=== PATIENT | female | born 1960 ===

== ENCOUNTER 2024-11-15 14:06 | Outpatient (AMB) | payer SELFPAY ==
--- OUTSIDE RECORDS SUMMARY | 2023-10-30 04:30 | XMS_ITS ---
Author Organization [facility] Address [address] [facility] [place] [address] Care Team Providers Care Clerk Cashier Name Role Phone Herminio HOWELL, Sage Primary Care Provider Unavail Ze Chinchilla Unavailable [phone] Problems No Known Problems Encounters Encounter Location Date Provider Diagnosis [facility] [address] [place] [address] 10/30/2023 Ze Ahuja Plan Of Treatment No Information Progress Notes * Miracle SHANKSDOB: (64 yo F)Acc No.[id number]:10/30/2023 Progress Notes Patient: Elmer LAROSE Miracle Palm Provider: Theresa Ahuja DPM :1960 A ge:63 Y S ex:Female Date:10/30/2023 [address] [place] Pcp:Sage Durham MD Subjective: * Chief Complaints: [...] Ahuja DPM Date: 0 10/30/2023 Generated for Printi ng/Faxing/eTransmitting on: 11/15/2024 04:27 PM EDT
--- OUTSIDE RECORDS SUMMARY | 2024-11-15 16:27 | XMS_ITS | Patient Health Record ---
[facility] [place] Address [address] [place] [address] Care Team Providers Care Billposter Name Role Phone Sage Durham MD Primary Care Provider Unavail Ze Chinchilla Unavailable [phone] Allergies Allergen (clinical drug ingredient) Drug/Non Drug Allergy documented on EMR Reaction Allergy Type Onset Date Status sulfa Unknown Drug Allergy Active Reason For Referral No Information Medications Medication SIG (Take, Route, Frequency, Duration) Notes Start Date End Date Status Custom Orthotics as directed A ctive Estradiol 0.075 MG/24HR 1 patch to skin Transdermal Two times a Week Active Levothyroxine Sodium 75 MCG 1 tablet Ora lly Once a day Active Ashely Active Work Note . . . Pt needs to wear sneakers from Nov.08 - Mar.10 due to chronic foot issues; Duration: . 11/03/2013 Active Custom Orthotics as directed 09/27/2013 Active Problems No Known Problems Plan Of Treatment No Information Insurance Providers Payer Name Payer Address Payer Phone Subscriber Number Group Number Insured Name Patient Relationship to Insured Coverage Start Date Coverage End Date [facility] [address] [place] [address] [id number] Swapnil Monterroso Spouse - patient is the spouse of the insured Medical (General) History Medical History History ICD Code Chicken pox chronic sinusitis Thyroid disorder Joint implants/screws
--- OUTSIDE RECORDS SUMMARY | 2024-11-15 16:27 | XMS_ITS | Encounter Summary ---
Author Organization [facility] Address [address] [facility] [address] [place] [address] Phone Care Team Providers Care Family Independence Case Manager Name Role Phone Allyson Lawson MD Unavailable [phone] Patria Huerta MD Primary Care Provider [phone] Patria Huerta MD Unavailable [phone] Encounter Details Date Type Department Care Team (Latest Contact Info) Description 04/11/2023 Transcribe Orders Virtual Department [address] [place] [address] Patria Huerta MD [address] [place] [address], [address] [place], [place] [id number] [email or web address] Breast screening (Primary Dx) Social History Tobacco Use Types Packs/Day Years Used Date Smoking Tobacco: Former Cigarettes 0.5 20 1 977 - 1996 Smokeless Tobacco: Never Alcohol Use Standard Drinks/Week Comments Yes 2 (1 standard drink = 0.6 oz pur e alcohol) on weekends couple drinks Child or Family Care Answer Date Record ed Do you have problems with on e of the following making it difficult for you to work, study, or receive health care? No 06/27/2021 Education Answer Date Recorded Are you interested in help w ith more adult education (for example, completing high school, GED, job training, learning the Korean language, technical skills, or developing parenting skills)? No 06/27/2021 Food Answer Date Recorded Within the past 6 months we worried whether our food would run out before we got money to buy more. Never True 06/27/2021 Within the past 6 months the food we bought just didn't last and we didn't have enough money to get more. Never True Residential Stability Answer Date Recor ded What is your housing situation today? I have joy barrow 06/27/2021 How many times have you move d in the past 12 months? Zero (I did not move) 06/27/2021 Paying for Meds Answer Date Recorded Do you have trouble paying for medicines? No 06/27/2021 Paying Utility Bills Answer Date Record ed Do you have trouble paying your heating or elect ricity bill? No 06/27/2021 Transportation Answer Date Recorded Has the lack of transportati on kept you from medical appointments or from getting medications? No 06/27/2021 Unemployment Answer Date Recorded Are you currently unemployed or working on a part-time or temporary basis, and looking for work? No 06/27/2021 Digital Access Answer Date Recorded No 08/05/2022 No 08/05/2022 Reliable internet access at home? Not on file 08/05/2022 Device with a working camera? Not on file Comments No Sex and Gender Information Value Date Recorded Sex Assigned at Female 10/31/2021 11:24 AM EDT Legal Sex Female 9:48 PM EDT Gender Identity Female 04/06/2017 1:36 PM EST Sexual Orientation Straight 04/06/2017 1: 36 PM EST documented as of this encounter Plan of Treatment Not on file documented as of this encounter Results * BI MAMMOGRAM SCREENING WITH TOMOSYNTHESIS WITH CAD (BILATERAL) (11/13/2023 10:29 AM EDT) Anatomical Region Laterality Modality Breast Left, Breast Right, Breast Bilateral Bila teral Mammography 11/14/2023 8:39 AM EDT Impressions 11/14/2023 8:42 AM EDT No mammographic evidence of malignancy in either breast. Annual screening mammography is recommended. BI-RADS 1 NEGATIVE The patient will be notified of the results and recommendations. Narrative 11/14/2023 8:42 AM EDT BI MAMMOGRAM SCREENING WITH TOMOSYNTHESIS WITH CAD (BILATERAL) Additional patient information: Screening. COMPARISON: Comparison is made with relevant prior imaging. Breast composition: There are scattered areas of fibroglandular density. FINDINGS: There has been no change in the mammographic findings since previous examination. No abnormal masses, suspicious calcifications, or other significant findings are identified mammographically in either breast. Procedure Note Patience Sweeney MD, PhD - 11/14/2023 BI MAMMOGRAM SCREENING WITH TOMOSYNTHESIS WITH CAD (BILATERAL) Additional patient information: Screening. COMPARISON: Comparison is made with relevant prior imaging. Breast composition: There are scattered areas of fibroglandular density. FINDINGS: There has been no change in the mammographic findings since previousexamination. No abnormal masses, suspicious calcifications, or other significantfindings are identified mammographically in either breast. IMPRESSION: No mammographic evidence of malignancy in either breast. Annual screening mammography is recommended. BI-RADS 1 NEGATIVE The patient will be notified of the results and recommendations. us Patria Huerta MD IMG MG EXAMS Final Result documented in this encounter Visit Diagnoses Diagnosis Breast screening- Primary Breast screening, unspecified Breast screening Breast screening, unspecified documented in this encounter Additional Health Concerns Infection Onset Date Last Indicated Resolved Time CoV-Risk 04/19/2024 04/19/2024 04/30/2024 1:23 AM EST Influenza A 04/19/2024 04/19/2024 04/26/2024 1:23 AM EST Assessment Noted Time PHQ-2 Depression Total Score: 0 06/28/19 8:43 AM EDT documented as of this encounter Care Teams Family Independence Case Manager Relationship Specialty Start Date End Date Patria Huerta MD [address] [place] [address], [facility] [address] [place] [address] [email or web address] PCP - General Family Medicine 06/28/21 Allyson Lawson MD [address] [place] [address] Historical LMR Provider 12/29/16 Patria Huerta MD [address] [place] [address] 7 [place] [address] [email or web address] Insurance Assigned Provider 06/14/23 documented as of this encounter Additional Source Comments The information contained in this document represents components of the legal health record. It is not the complete legal health record.[facility]
--- OUTSIDE RECORDS SUMMARY | 2024-11-15 16:27 | XMS_ITS | Encounter Summary ---
Author Organization [facility] Address [address] [place] [address] Phone Care Team Providers Care Binding Bench Worker Name Role Phone Allyson Lawson MD Unavailable [phone] Patria Huerta MD Primary Care Provider Patria Huerta MD Unavailable [phone] Encounter Details Date Type Department Care Team (Late st Contact Info) Description 04/11/2023 Procedure Pass [address] [place] [address] Social History Tobacco Use Types Packs/Day Years Used Date Smoking Tobacco: Former Cigarettes 0.5 20 0 03/10/1976 - 1996 Smokeless Tobacco: Never Alcohol Use [...] high school, GED, job training, learning the Puerto Rican language, technical skills, or developing parenting skills)? No 06/27/2021 Food Answer Date Recorded Within the past 6 months we worried whether our food would run out before we got money to buy more. Never True 06/27/2021 Within the past 6 months the food we bought just didn't last and we didn't have enough money to get more. Never True 04/20/202 2 Residential Stability Answer Date Recor ded What [...] on file documented as of this encounter Visit Diagnoses Not on filedocumented in this encounter Additional Health Concerns Infection Onset Date Last Indicated Resolved Time CoV-Risk 04/19/2024 04/19/2024 04/30/2024 1:23 AM EST Influenza A 04/19/2024 04/19/2024 04/26/2024 1:23 AM EST Assessment Noted Time PHQ-2 Depression Total Score: 0 06/28/19 8:43 AM EDT documented as of this encounter Care Teams Binding Bench Worker Relationship Specialty Start Date End Date Patria Huerta MD [address] [place] [address] 7 [place], [place] [id number] [email or web address] PCP - General Family Medicine 06/28/21 Allyson Lawson MD [address] [place] [address] Historical LMR Provider 12/29/16 Patria Huerta MD [address] [place] [address] [address] [place] [address] [email or web address] Insurance Assigned Provider 06/14/23 documented as of this encounter Additional Source Comments The information contained in this document represents components of the legal health record. It is not the complete legal health record.[facility]
--- OUTSIDE RECORDS SUMMARY | 2024-11-15 16:27 | XMS_ITS | Encounter Summary ---
Author Organization [facility] Address [address] [place] [address] Phone Care Team Providers Care Furnace Caretaker Name Role Phone Allyson Lawson MD Unavailable [phone] Patria Huerta MD Primary Care Provider [phone] Patria Huerta MD Unavailable [phone] Encounter Details Date Type Department Care Team (Late st Contact Info) Description 05/01/2023 Procedure Pass [facility], [facility] [address] [place] [address] Social History Tobacco Use Types Packs/Day Years Used Date Smoking Tobacco: Former Cigarettes 0.5 20 1 977 - 1997 Smokeless Tobacco: Never Alcohol Use Standard Drinks/Week [...] high school, GED, job training, learning the Japanese language, technical skills, or developing parenting skills)? [...] PM EST documented as of this encounter Functional Status * Calculated C-SSRS Risk Score (Lifetime/Recent) Answer Date of Assessment Author No Risk Indicated 05/01/2023 11:54 AM Jeannette Desai, RN * [place] Suicide Severity Rating Scale (Screener/Recent Self-Report) Question Answer Date of Assessment Author 1. Wish to be (Past 1 Month) No 024 11:54 AM Jeannette Desai, RN 2. Non-Specific Active Suici faye Thoughts (Past 1 Month) No 05/01/2023 11:54 AM Palomo Desai, RN 6. Suicidal Behavior (Lifetime) No 11:54 AM Jeannette Desai, RN documented as of this encounter Plan of [...] documented as of this encounter Care Teams Furnace Caretaker Relationship Specialty Start Date End Date Patria Huerta MD [address] [place] [address] 7 [place] [address] [email or web address] PCP - General Family Medicine 06/28/21 Allyson Lawson MD [address] [place] [address] Historical LMR Provider 12/29/16 Patria Huerta MD [address] [place] [address] 7 [place] [address] [email or web address] Insurance Assigned Provider 06/14/23 documented as of this encounter Additional Source Comments The information contained in this document represents components of the legal health record. It is not the complete legal health record.[facility]
--- OUTSIDE RECORDS SUMMARY | 2024-11-15 16:27 | XMS_ITS | Encounter Summary ---
Author Organization [facility] Address [address] [place] [address] Phone Care Team Providers Care Window Shade Cutter And Mounter Name Role Phone Jose Eduardo Arteaga MD Unavailable Sage Durham MD Unavailable Allyson Lawson MD Unavailable [phone] Sage Durham MD Primary Care Provider [phone] Michelle Hammond NP Unavailable Demond Keene DO Unavailable Temo Durham MD Unavailable Lynn Mabry NUTRITION INSTRUCTOR Unavailable Brittany Rdz MD Unavailable Roland Gaspar MD Unavailable Patria Huerta MD Unavailable Temo Durham MD Unavailable Demond Keene DO Unavailable Kelly May Primary Care Provider Patria Huerta MD Primary Care Provider [phone] SahDemond vasquez DO Unavailable Patria Huerta MD Unavailable Encounter Details Date Type Department Care Team (Late st Contact Info) Description 03/15/2020 Procedure Pass [address] [place] [address] Social History Tobacco Use Types Packs/Day Years Used Date Smoking Tobacco: Former Cigarettes 0.5 20 1 977 - 1996 Smokeless Tobacco: Never Alcohol Use Standard Drinks/Week Comments Yes 2 (1 standard drink = 0.6 oz pur e alcohol) on weekends couple drinks Comments No Sex and Gender Information Value [...] Noted Time PHQ-2 Depression Total Score: 0 12/26/19 21 9:23 PM EDT documented as of this encounter Care Teams Window Shade Cutter And Mounter Relationship Specialty Start Date End Date Sage Durham MD [address] [facility] [address] [place] [address] [email or web address] PCP - General 12/23/16 12/25/20 Kelly May FNP [address] [facility], [address] [place] [address] PCP - General Family Medicine 12/26/20 06/27/21 Patria Huerta MD [address] [place] [address] PCP - General Family Medicine 06/28/21 Jose Eduardo Arteaga MD [address] [facility], [facility] [address] [place] [address] [email or web address] Historical LMR Provider 12/29/16 03/17/21 Sage Durham MD [address] [place], [place] [address] [place] [phone] [email or web address] Historical LMR Provider 12/29/16 06/27/21 Allyson Lawson MD [address] [place] [address] Historical LMR Provider 12/29/16 Michelle Hammond NP [address] [place] [address] Historical LMR Provider 12/29/16 2 Demond Keene DO [address] [place] [address] 7 [place] [address] [email or web address] Historical LMR Provider 12/29/16 06/27/21 Temo Durham MD [address] [place] [phone] [email or web address] Historical LMR Provider 12/29/16 06/27/21 Lynn Mabry NP [address] [place] [address] Historical LMR Provider 12/29/16 2 Brittany Rdz MD [address] [place] [address] 7 [place] [address] [email or web address] Historical LMR Provider 12/29/16 03/17/21 Roland Gaspar MD [address] [place] [address] 7 [place] [phone] Historical LMR Provider 12/29/16 2 Patria Huerta MD [address] [place] [address] 7 [place] [address] [email or web address] Historical LMR Provider 12/29/16 2 Temo Durham MD [address] [place] [address] [place] [phone] [email or web address] Insurance Assigned Provider 08/13/20 09/16/20 Demond Keene DO [address] [place] [address] 7 [place] [address] [email or web address] Insurance Assigned Provider 09/16/20 06/27/21 Demond Keene DO [address] [place] [address] 7 [place] [address] [email or web address] Insurance Assigned Provider 09/16/20 09/15/21 Patria Huerta MD [address] [place] [address] 7 [place] [address] [email or web address] Insurance Assigned Provider 06/14/23 documented as of this encounter Additional Source Comments The information contained in this document represents components of the legal health record. It is not the complete legal health record.[facility]
--- OUTSIDE RECORDS SUMMARY | 2024-11-15 16:28 | XMS_ITS | Encounter Summary ---
Author Organization [facility] Address [address] [place] [address] Phone Care Team Providers Care Dye Worker Name Role Phone Jose Eduardo Arteaga MD Unavailable Sage Durham MD Unavailable Allyson Lawson MD Unavailable [phone] Sage Durham MD Primary Care Provider [phone] Michelle Hammond NP Unavailable Demond Keene DO Unavailable Temo Durham MD Unavailable [phone] Lynn Mabry MAITRE D' Unavailable Brittany Rdz MD Unavailable Roland Gaspar MD Unavailable [phone] Patria Huerta MD Unavailable Temo Durham MD Unavailable Demond Keene DO Unavailable Kelly May Primary Care Provider [phone] Patria Huerta MD Primary Care Provider [phone] SahDemond vasquez DO Unavailable Patria Huerta MD Unavailable Encounter Details Date Type Department Care Team (Late st Contact Info) Description 03/07/2017 Procedure Pass OR Admitting Dept - Virtual Department [address] [place] [address] Social History Tobacco Use Types Packs/Day Years Used Date Smoking Tobacco: Former Cigarettes Q uit: 1996 Smokeless Tobacco: Never Alcohol Use Standard Drinks/Week Comments Yes 3 (1 standard drink = 0.6 oz pur e alcohol) 3 drinks per week Comments No Sex and Gender Information Value [...] A 04/19/2024 04/19/2024 04/26/2024 1:23 AM EST documented as of this encounter Care Teams Dye Worker Relationship Specialty Start Date End Date Sage Durham MD [address] [place], [place] [address] [place] [address] [email or web address] PCP - General 12/23/16 12/25/20 Kelly May FNP [address] [place] [address] 7 [place] [address] PCP - General Family Medicine 12/26/20 06/27/21 Patria Huerta MD [address] [place] [address] 7 [place] [address] PCP - General Family Medicine 06/28/21 Jose Eduardo Arteaga MD [address] [place] [address], [address] [address] [email or web address] Historical LMR Provider 12/29/16 03/17/21 Sage Durham MD [address] [place] [address] [address] [place] [phone] [email or web address] Historical LMR Provider 12/29/16 06/27/21 Allyson Lawson MD [address] [place] [address] Historical LMR Provider 12/29/16 Michelle Hammond NP [address] [place] [address] Historical LMR Provider 12/29/16 2 Demond Keene DO [address] [place] [address] 7 [place] [address] [email or web address] Historical LMR Provider 12/29/16 06/27/21 Temo Durham MD [address] [place] [address] 7 [place] [phone] [email or web address] Historical LMR Provider 12/29/16 06/27/21 Lynn Mabry NP [address] [place] [address] Historical LMR Provider 12/29/16 2 Brittany Rdz MD [address] [place] [address] 7 [place] [address] [email or web address] Historical LMR Provider 12/29/16 03/17/21 Roland Gaspar MD [address] [place] [address] 7 [place] [phone] Historical LMR Provider 12/29/16 2 Patria Huerta MD [address] [place] [address] 7 [place] [address] [email or web address] Historical LMR Provider 12/29/16 2 Temo Durham MD [address] [place] [address] [place] [phone] [email or web address] Insurance Assigned Provider 08/13/20 09/16/20 Demond Keene DO [address] [place] [address] 7 [place] [address] [email or web address] Insurance Assigned Provider 09/16/20 06/27/21 Demond Keene DO [address] [place] [address] 7 [place] [address] [email or web address] Insurance Assigned Provider 09/16/20 09/15/21 Patria Huerta MD [address] [place] [address] 7 [place] [address] [email or web address] Insurance Assigned Provider 06/14/23 documented as of this encounter Additional Source Comments The information contained in this document represents components of the legal health record. It is not the complete legal health record.[facility]
--- OUTSIDE RECORDS SUMMARY | 2024-11-15 16:28 | XMS_ITS | Clinical Summary ---
Author Organization [facility] Address [address] [address] Phone Care Team Providers Care Appellate Court Judge Name Role Phone Allyson Lawson MD Unavailable [phone] Patria Huerta MD Primary Care Provider Patria Huerta MD Unavailable [phone] Allergies Active Allergy Reactions Criticality Noted Date Comments Amoxicillin Rash Low 05/02/2016 Sulfa (Sulfonamide Antibiotics) Rash Low 02/07 Medications acetaminophen (TYLENOL) 325 mg tablet Take 2 tablets (650 mg total) by mouth every 4 (four) hours as needed for mild pain. 0 018 Active PREVIDENT 5000 SENSITIVE 1.1-5 % Pste 2 (two) times a day. 023 Active rosuvastatin (CRESTOR) 10 MG tabletIndications:Pure hypercholesterolemia Take 1 tablet (10 mg total) by mouth daily. 90 tablet 3 024 Active topiramate (TOPAMAX) 25 MG tabletIndications:Class 1 obesity due to excess calories without serious comorbidity with body mass index (BMI) of 32.0 to 32.9 in adult Take 25 mg nightly for 7 days, then go to 50 mg nightly. 60 tablet 2 024 Active estradioL (VIVELLE-DOT) 0.025 mg/[address] 1 patch onto the skin 2 (two) times a week. 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 90 capsule 3 025 Active LORazepam (ATIVAN) 0.5 MG tabletIndications:Anxie ty state Take 1 tablet (0.5 mg total) by mouth nightly at bedtime as needed for anxiety. 30 tablet 025 Active levothyroxine (SYNTHROID, LEVOTHROID) 88 MCG tabletIndications:Hypot hyroidism, unspecified type TAKE ONE TABLET BY MOUTH EVERY DAY 90 tablet 3 025 Active levothyroxine (SYNTHROID, LEVOTHROID) 88 MCG tabletIndications:Hypot hyroidism, unspecified type Take 1 tablet (88 mcg total) by mouth daily. 90 tablet 3 024 2024 Discontinued Active Problems Problem Noted Date Diagnosed Date Class 1 obesity due to exces s calories without serious comorbidity with body mass index (BMI) of 32.0 to 32.9 in adult 12/18/2023 Overview (06/17/2024): 12/2023, she would like to try GLP-1 agonist. No history of diabetes. Insurance did not cover this She will try topiramate Anxiety state 08/30/2021 Overview (08/30/2021): She takes lorezapam 0.5 mg occasionally for sleep and anxiety Routine general medical exam ination at a health care facility 06/28/2021 Overview (06/28/2021): Colonoscopy - 2025 after 10 years Pap and breast - does with obgyn Sees derm every 2 years [place] (actinic keratosis) 06/28/2021 Overview (06/28/2021): Left sabianist and right forehead treated 06/2021 Liquid nitrogen pulsed for 10 seconds on each lesion. Patient tolerated well with no complications. Pure hypercholesterolemia 07/29/2017 Overview (06/17/2024): LDL is quite elevated. She has a strong family history of cardiovascular disease. We will start Lipitor 20 mg 06/2021 Body aches 08/2021 to trial off - these got better without med 11/2021 try pravastatin 20 mg for less side effects , doing this every other day for less side effects Crestor 10 mg working well for her! Assessment & Plan (07/29/2017 10:37 AM EDT): In reviewing her lipid profile her LDLs actually elevated at 154 mg/dL with a total cholesterol 250. I did caution her on what she is eating hopefully between dietary changes and a significant increase in exercise this will show improvement in 4-6 months time when we repeated. Hypothyroid 02/17/2017 Overview (12/18/2023): Hashimotos Stable on levothyroxine, 88 mcg daily Pre-diabetes 02/17/2017 Overview (08/30/2021): Working on diet and hoping to meet with health college sports coach soon Assessment & Plan (07/29/2017 10:36 AM EDT): As above this patient needs aggressive risk factor modification by increasing exercise and just watching what she eats. We will get echocardiogram I will see her thereafter in follow-up Seasonal allergic rhinitis 02/17/2017 Menopausal syndrome on hormone replacement thera py 02/17/2017 Overview (06/12/2023): Started in September 2010 With OBGYN and trying to wean off 2021. Getting more hot flashes on 03/11 0.0375 patch. She has had mirena for endometrial protection. We will try switching her to a 0.025 patch. I feel comfortable continuing this as she has been on estrogen therapy since menopause. Continuing estrogen therapy does not put her at greater cardiovascular risk, although starting estrogen therapy after the age of 60 would. As long as she is benefiting from the therapy and we have endometrial protection from progesterone I think she is at very low risk to continue this. IUD is out, she is is using oral progesterone with PERSONNEL RESEARCH PSYCHOLOGIST now Assessment & Plan (04/14/2023 5:58 PM EST): No contraindications to continued treatment. IUD is at the 5 year dia so will remove and begin PO prometrium. Can replace IUD if Miracle desires. Assessment & Plan (03/19/2021 11:29 AM EST): Reviewed recent lipids with increase in cardiovascular risk score. Discussed that at this point, HRT use is off label given over age 60. Strongly recommend taper -> cessation. Advised that Miracle can start by cutting current patch in half then can increase the interval that she changes her patch. Once off of estradiol patch, can schedule IUD removal. Rx not refilled today as she just picked up a 90 day supply - this should be enough for taper. Assessment & Plan (03/15/2020 11:12 AM EST): Does decreased by 50% as she sometimes uses 1/2 of current patch when her supply is running low. Discussed expectations for hot flashes. If she does well on this dose, will continue to taper. Assessment & Plan (12/12/2018 9:35 PM EDT): Plan to reassess cessation at next annual. Will need to keep IUD in place as long as she continues on estradiol patch (or change to alternative administration of progesterone). Rx refilled. Assessment & Plan (12/04/2017 10:06 AM EDT): Reviewed WHI data in particular risks associated with extended HRT (>5 years or age >60). Discussed increased risk of breast cancer/VTE. Miracle expressed understanding and feels strongly about continuing therapy for now. Rx refilled. We discussed to process for tapering off of patch (can extend amount of time patch is in place or trim patch with each change). Advised gradual taper over a few months if she decides to try in the future. Would leave IUD in place until off of Minivelle. Assessment & Plan (02/17/2017 8:50 AM EST): I counseled Miracle that the IUD will not only provide protection against recurrent polyps, but will also provide opposition for her system E2 therapy, therefore she can stop her prometrium once she has the IUD in place. Resolved Problems Problem Noted Date Diagnosed Date Resolved Date LLQ pain 03/01/2022 06/17/2024 Assessment & Plan (03/01/2022 11:58 AM EST): Miracle has left lower quadrant abdominal pain getting worse. Her signs and symptoms are consistent with diverticulitis and I treated her with Cipro and Flagyl today in the office-to be taken as directed. Guidance given. I also informed her about dietary changes and a more bland diet with plenty of liquids. She will call if things get worse or if there are any other issues or concerns. I did advise her to get blood work done today to monitor her electrolytes and renal function as well as a CBC- she is due for additional labs that are already in the system. She will call if there are any other issues or concerns. She understands and agrees. Right elbow pain 08/30/2021 07/30/2024 Overview (11/23/2021): Suspect Tendonitis and epicondylitis, recurrent 08/2021 Try wrist bracing, ice and topical nsaids 11/2021 no better, we will have her see physiatry as this has been painful for over 1 year Left arm pain 06/30/2020 12/26/2020 Assessment & Plan (06/30/2020 9:18 AM EDT): Miracle presents for left arm pain. I suspect some sort of a strain but I do want to get an x-ray to verify that the joint looks good. She will go for the x-ray and I will update her with the results. I wrote for prednisone-to be taken in the morning for the next 5 mornings as directed. I also wrote a referral to physical therapy-she will call for the appointment. She will call if this does not improve or things get worse. She understands and agrees with this plan. Numbness and tingling in right hand 10/05/2019 07/30/2024 Overview (06/28/2021): Ulnar nerve related Assessment & Plan (12/26/2020 12:04 PM EDT): ? Ulnar neuropathy, doesn't bother her too much lately Assessment & Plan (10/05/2019 9:48 AM EDT): Miracle was diagnosed with numbness and tingling of the right hand likely secondary to a form of ulnar nerve impingement or entrapment. 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 I advised rest ice elevation, ibuprofen and compression as needed. I put a referral into Ortho for an evaluation. I gave her a printout regarding information for this. She will call if this gets worse or if this changes. She understands and agrees with this plan. Tendonitis, Achilles, right 03/17/2019 12/26/2020 Flat foot 03/17/2019 07/30/2024 Cellulitis of finger of right hand 06/19/2018 12/26/2020 Assessment & Plan (06/19/2018 8:58 AM EDT): Miracle was diagnosed with a cellulitis of her right 5 th digit. There was no foreign body appreciated. I did not visualize any cysts with the otoscope light. I wrote for the above antibiotic x 10 days, she will call if this gets worse. She will also go for the above image study to R/O any bone abnormalities. She will call if there is any other issues. She understands and agrees. Intermenstrual bleeding 03/24/201703/10 Breakthrough bleeding associ ated with intrauterine device (IUD) 03/24/2017 03/15/2020 Overview (12/04/2017): Aj 2016 Assessment & Plan (12/03/2017 4:55 PM EDT): Much improved, now has rare spotting. Assessment & Plan (07/29/2017 10:36 AM EDT): This has been an issue but is being well-controlled at the present time. Assessment & Plan (03/24/2017 10:26 AM EST): I reviewed with Miracle that it is not uncommon to have some spotting for a few months after Mirena IUD placement. If not improved in that time, she should be seen in follow up for ultrasound to eval for IUD placement. At some point, we may need to consider whether Minivelle needs to be stopped as may be contributing. Pelvic cramping 03/24/2017 12/04/2017 Assessment & Plan (03/24/2017 10:28 AM EST): Given location on exam, as well as onset prior to procedure and IUD placement, suspect it may be GI in nature. I encouraged her to follow up with PCP to discuss any need for GI referral vs treatment which may improve her sx. Endometrial polyp 02/17/2017 03/24/2017 Assessment & Plan (02/17/2017 8:51 AM EST): Plan for hysteroscopic polypectomy, D&C as noted above. Sinusitis, chronic 02/17/2017 Postmenopausal bleeding 02/17/201703/10 Encounters Date Type Department Care Team Description 11/14/2024 [address] [facility] [address] [place] [address] Patria Huerta MD Medication Refill 09/17/2024 Telephone [facility] [address] [place] [address] Stephani Feliz MA pravastatin request from Last 3 Months Immunizations Immunization Administration Dates Next Due [id number] FORMULATION 04/19/2009 Hepatitis A, Adult 03/24/2013,11/04/2012 INFLUENZA, SPLIT VIRUS, TRIVALENT PF 12/18/2023 INFLUENZA, SPLIT VIRUS, TRIV ALENT W/ PRESERVATIVE IM 12/10/2010 Influenza Quadrivalent MDCK Preservative Free IM 12/10/2016 Influenza Quadrivalent Preservative Free IM 12/08,01/14/2020,11/08/2015 Influenza Quadrivalent w/ Preservative IM 2014 Influenza trivalent preserva tive free intradermal 12/25/2013,11/04/2012,11/13/2011 Influenza, Unspecified Formulation 12/25/2022,,12/25/2017 Influenza, whole 11/13/2011,12/13/2009 Td (adult),2 Lf Tetanus Toxo id, PF, Adsorbed 12/26/2020 Tdap 04/25/2010 Zoster recombinant 04/14/2020,01/14/2020 Family History Medical History Relation Comments Coronary artery disease Brother 1 Diabetes Father Heart attack Father Dementia Mother Coronary artery disease Sister 1 At age 5 2 Relation Status Comments Brother 1 Alive Brother 2 Alive Brother 3 Alive Brother 4 Alive Brother 5 Alive Father Mother Alive Sister 1 Alive Sister 2 Alive Sister 3 Alive Sister 4 Alive Sister 5 Alive Sister 6 Alive Social History Tobacco Use Types Packs/Day Years Used Date Smoking Tobacco: Former Cigarettes 0.5 20 0 03/10/1976 - 1996 Smokeless Tobacco: Never Tobacco Cessation:Counseling Given: Not Answered Alcohol Use Standard Drinks/Week Comments Yes 2 (1 standard drink = 0.6 oz pur e alcohol) on weekends couple drinks Child or Family Care Answer Date Record ed Do you have problems with on e of the following making it difficult for you to work, study, or receive health care? No 06/13/2024 Education Answer Date Recorded Are you interested in help w ith more adult education (for example, completing high school, GED, job training, learning the [place] language, technical skills, or developing parenting skills)? No 06/13/2024 Are you concerned about learning? Not on file 06/13/2024 No 06/13/2024 Yes 06/13/2024 Food Answer Date Recorded Within the past 6 months we worried whether our food would run out before we got money to buy more. Never True 06/13/2024 Within the past 6 months the food we bought just didn't last and we didn't have enough money to get more. Never True Residential Stability Answer Date Recor ded What is your housing situation today? I have joy sing 06/13/2024 How many times have you move d in the past 12 months? Zero (I did not move) 06/13/2024 Paying for Meds Answer Date Recorded Do you have trouble paying for medicines? No 06/13/2024 Paying Utility Bills Answer Date Record ed Do you have trouble paying your heating or elect ricity bill? No 06/13/2024 Transportation Answer Date Recorded Has the lack of transportati on kept you from medical appointments or from getting medications? No 06/13/2024 Unemployment Answer Date Recorded Are you currently unemployed or working on a part-time or temporary basis, and looking for work? No 06/27/2021 Digital Access Answer Date Recorded No 06/13/2024 Yes 06/13/2024 Do you have reliable internet access at home? Ye s 06/13/2024 Do you have a device (e.g., phone, tablet, computer) with a working camera? Yes 06/13/2024 Intimate Partner Violence Answer Date R ecorded Denied Basic Needs Not on file 06/13/2024 In the past 12 months have y ou been in a relationship with a person who hurts, threatens, or tries to control you? No 06/13/2024 Worried food would run out Not on file 06/13 In the past 12 months have y ou been in a relationship with a person who hurts, threatens, or tries to control you? No 06/13/2024 Comments No Sex and Gender Information Value Date Recorded Sex Assigned at Female 10/31/2021 11:24 AM EDT Legal Sex Female 9:48 PM EDT Gender Identity Female 04/06/2017 1:36 PM EST Sexual Orientation Straight 04/06/2017 1: 36 PM EST Last Filed Vital Signs Vital Sign Reading Time Taken Comments Blood Pressure 128/82 06/17/2024 10:33 AM EDT Pulse 72 06/17/2024 10:33 AM EDT Temperature 36.4 C (97.5 F) 06/17/2024 10:33 AM EDT Respiratory Rate 16 05/01/2023 5:28 PM EST Oxygen Saturation 98% 06/17/2024 10:33 AM EDT Inhaled Oxygen Concentration - - Weight 79.8 kg (176 lb) 07/30/2024 10:28 AM EDT Height 157.5 cm (5' 2 ) 07/30/2024 10:28 AM EDT Body Mass Index 32.19 07/30/2024 10:28 AM EDT Plan of Treatment Health Maintenance Due Date Last Done Comments COLOGUARD 02/19/2005 FIT TEST 02/19/2005 FOBT 02/19/2005 SIGMOIDOSCOPY 02/19/2005 VIRTUAL COLONOSCOPY 02/19/2005 PNEUMOCOCCAL VACCINES (50+ years) (1 of 1 - PCV) 02/19/2010 INFLUENZA VACCINE (#1) 2024 , 12/25/2022, 12/26/2021, Additional history exists COVID-19 VACCINE ( season) 2024 TSH LEVEL 12/17/2024 12/18/2023, 04/11, 03/08/2021, Additional history exists DEPRESSION SCREENING 06/13/2025 06/13/2024 COLONOSCOPY 07/04/2025 07/05/2015 COLORECTAL CANCER SCREENING 07/04/2025 MAMMOGRAM 11/12/2025 11/13/2023, 05/2021, 03/17/2019, Additional history exists PAP SMEAR 03/19/2026 03/19/2021, 10/08, 10/10/2016, Additional history exists SCREENING FOR DIABETES 06/18/2027 06/17/2024, 2024 LIPID PANEL 06/17/2029 06/17/2024, 12/08, 06/12/2023, Additional history exists Adult Td,Tdap Booster 12/26/2030 12/26/2020, 011 RSV VACCINE (1 - 1-dose 75+ series) 02/19/2035 HEPATITIS A VACCINES Aged Out 03/24/2013, 11/05/19 13 No longer eligible based on patient's age to complete this topic ZOSTER VACCINES Completed 04/14/2020, 01/14/2020 HEPATITIS C SCREENING Completed 03/08/2021, 021 HIV ONE-TIME SCREENING (18-65 YEARS) Completed 03/08/2021 SMOKING STATUS SCREENING (Once After 26 Yrs) Completed 07/30/2024 HIB VACCINES Aged Out No longer eligi ble based on patient's age to complete this topic MENINGOCOCCAL VACCINES (ACWY) Aged Out No longer eligible based on patient's age to complete this topic MENINGOCOCCAL VACCINES (B) Aged Out N o longer eligible based on patient's age to complete this topic Medical Devices Implanted Type Area Ice Cream Vendor Device Identifier Shelf Expiration Date Model / Serial / Lot Contraceptive Iud Mirena - Must Order A Minimum Of 50ea - [id number] Implanted:Qty: 1 on 03/07/2017 by Allyson Lawson MD at [facility] N/A: Uterus [employer] 09/07/2019 [id number] / / [id number] Procedures Procedure Name Priority Date/Time Associated Diagnosis Comments LIPID PANEL Routine 06/17/2024 11:48 AM EDT Pure hypercholesterolemia TSH Routine 12/18/2023 9:42 AM EDT Acquired hypothyroidism BI MAMMOGRAM SCREENING WITH TOMOSYNTHESIS WITH CAD (BILATERAL) Routine 11/13/2023 10:29 AM EDT Breast screening PAP TEST Routine 03/19/2021 12:00 AM EST HEPATITIS C ANTIBODY, QUALITATIVE Routine 03/08/2021 10:53 AM EST Need for hepatitis C screening test HM COLONOSCOPY FOR RESULT ENTRY ONLY Routine 07/05/2015 from Last 3 Months or Most Recently Relevant to Health Maintenance Results * (ABNORMAL) Lipid panel (06/17/2024 11:48 AM EDT) HDL 73 mg/dL [facility] Comment: Interpretation <40 mg/dL: Low HDL cholesterol (major risk factor for CHD) Greater than or equal to 60 mg/dL: High HDL cholesterol ( negative risk factor for CHD) HDL - cholesterol is affected by a number of factors, e.g. smoking, excerise, hormones, sex and age. CHOLESTEROL 161 0 - 240 mg/dL [facility] TRIGLYCERIDES 70 30 - 160 mg/dL [facility] LDL 74 50 - 129 mg/dL [facility] Comment: LDL levels in terms of risk for coronary heart disease: <100 mg/dL: Optimal 100-129 mg/dL: Near or above optimal 130-159 mg/dL: Borderline high 160-189 mg/dL: High >190 mg/dL: Very High CARDIAC RISK RATIO 2.2(L) 3.3 - 4.4 C [facility] Blood 06/17/2024 11:4 8 AM EDT 06/17/2024 11:51 AM EDT us Patria Huerta MD LAB BLOOD ORDERABLES Final R esult [address] [address] * TSH (12/18/2023 9:42 AM EDT) TSH 3.02 0.27 - 4.20 uIU/mL [facility] Blood 12/18/2023 9:42 AM EDT 12/18/2023 9:46 AM EDT Patria Huerta MD LAB BLOOD ORDERABLES Final R esult Performing Organization Address City/[facility]/ZIP Co de Phone Number [address] [address] * BI MAMMOGRAM SCREENING WITH TOMOSYNTHESIS WITH [...] be notified of the results and recommendations. Patria Huerta MD IMG MG EXAMS Final Result * Pap Smear (03/19/2021 12:00 AM EST) 03/19/2021 03/20/2021 8:4 7 AM EST Narrative SEE NARRATIVE - 03/22/2021 3:07 [place] [address] Medicine Assistant: Tata Mckinney MD PERSONNEL RESEARCH PSYCHOLOGIST Cytology Report FINAL DIAGNOSIS A. PAP SMEAR (SUREPATH) CE: SPECIMEN ADEQUACY: Satisfactory for evaluation; transformation zone present. INTERPRETATION: NEGATIVE FOR INTRAEPITHELIAL LESION OR MALIGNANCY. Electronically Signed Out By: JESSENIA Gil(ASCP) The Pap test is a screening test primarily for squamous cancers and precursors and has associated false-negative and false-positive results. New technologies such as liquid-based preparations may decrease but will not eliminate all false-negative results. Regular sampling and follow-up of unexplained clinical signs and symptoms are recommended to minimize false negative results. PROCEDURES/ADDENDA HPV Testing (Requested) Ordered Date: 03/20/2021 A. PAP SMEAR (SUREPATH) CE: Human Papilloma Virus Test Negative for high-risk human papillomavirus types 16, 18, 45 and the Other high risk probe set (Includes 31, 33, 35, 39, 51, 52, 56, 58, 59, 66, 68) by [employer] On[employer] HR-HPV analysis. Clinical correlation is advised. This HPV test was performed at [facility], [address] [place] [address]. This test has been FDA approved for [facility]Path cervical cytology specimens. The accuracy and precision of this test for all other specimen sources has been verified in the Cytopathology Laboratory of the [facility] and has not been cleared or approved by the U.S. Food and Drug Administration. Clinical correlation is advised. CLINICAL HISTORY Date of Last Menstrual Period: Not Provided Menstrual History: Post Menopausal Contraceptive History: IUD Treatment History: Hormone Therapy: ESTRADIOL PATCH Other Clinical Conditions: Screening Pap SPECIMEN SOURCE A: PAP SMEAR (SUREPATH) CE Patient Name: MIRACLE SHANKS : 1960 (Age: 61) Sex: F Institution: [facility] Location: [facility] Date of Collection: 03/19/2021 Date of Reported: 03/22/2021 15:07 Results to: Judy Ford MD Judy Ford MD CYTOLOGY ORDERABLES Final Res ult SEE NARRATIVE * Hepatitis C antibody, qualitative (03/08/2021 10:53 AM EST) HCV NON-REACTIV E NON-REACTI VE [facility] Blood 03/08/2021 10:5 3 AM EST 03/08/2021 10:58 AM EST Kelly May BEER MAKER LAB BLOOD ORDERABLES Final Re sult [facility] [address], [place] [id number] * COLONOSCOPY FOR RESULT ENTRY ONLY (07/05/2015) Colonoscopy 10 yr us Historical Provider HEALTH MAINTENANCE Final Result from Last 3 Months or Most Recently Relevant to Health Maintenance Insurance [facility] PPO BLUE [employer] OUT OF STATE PPO Advance Directives For more information, please contact: [phone] (9AM - 5PM [facility], Friday-Friday) Documents on File Type Date Recorded Patient Environmental Services Project Manager Expl anation Healthcare Proxy 03/11/2017 1:02 PM proxy * Full Code (Presumed) (Latest Code Status on File) Date Activated Date Inactivated Comments 03/07/2017 7:04 AM 03/07/2017 11:33 AM Care Teams [address] Judge Relationship Specialty Start Date End Date Patria Huerta MD [address] [place] [address] [address] [place] [address] PCP - General Family Medicine 06/28/21 Allyson Lawson MD [address] [place] [id number] Historical LMR Provider 12/29/16 Patria Huerta MD [address] [place] [address] [address] [place] [address] [email or web address] Insurance Assigned Provider 06/14/23 Additional Source Comments The information contained in this document represents components of the legal health record. It is not the complete legal health record.[facility]
--- OUTSIDE RECORDS SUMMARY | 2024-11-15 16:28 | XMS_ITS | Encounter Summary ---
Author Organization [facility] Address [address] [place] [address] Phone Care Team Providers Care Entry Level Administrative Assistant Name Role Phone Jose Eduardo Arteaga MD Unavailable Sage [place] MD Unavailable Allyosn Lawson MD Unavailable [phone] Sage [place] MD Primary Care Provider [phone] Michelle Hammond NP Unavailable Demond Keene DO Unavailable Temo [place] MD Unavailable Lynn Mabry CAN CRIMPER Unavailable Brittany Rdz MD Unavailable Roland Gaspar MD Unavailable Patria Huerta MD Unavailable Temo [place] MD Unavailable Demond Keene DO Unavailable Kelly May Primary Care Provider Patria Huerta MD Primary Care Provider [phone] SahDemond vasquez DO Unavailable Patria Huerta MD Unavailable [phone] Encounter Details Date Type Department Care Team (Late st Contact Info) Description 01/16/2017 Ancillary Orders [facility] 30 [place] [address] Allyson Lawson MD 4 [place] [address] Visit for screening mammogram Social History Tobacco Use Types Packs/Day Years Used Date Smoking Tobacco: Never Assessed Comments Unknown Sex and Gender Information Value Date Recorded Sex Assigned at Female 10/31/2021 11:24 AM EDT Legal Sex Female 9:48 PM EDT Gender Identity Female 04/06/2017 1:36 PM EST Sexual Orientation Straight 04/06/2017 1: 36 PM EST documented as of this encounter Plan of Treatment Not on file documented as of this encounter Results * BI MAMMOGRAM SCREENING WITH TOMOSYNTHESIS WITH CAD (BILATERAL) (01/29/2017 4:17 PM EST) Anatomical Region Laterality Modality Breast Left, Breast Right, Breast Bilateral Bila teral Mammography 01/31/2017 9:12 AM EST Impressions 01/31/2017 9:17 AM EST Stable appearance of the breasts. No radiographic evidence of malignancy. In the absence of a suspicious palpable abnormality, annual screening mammography is recommended. BI-RADS CATEGORY: 2 - Benign finding. DENSITY: There are scattered fibroglandular densities. POS CDHMAMA Narrative 01/31/2017 9:17 AM EST COMPARISON: 12/08/2007 through 01/25/2016. Bilateral 3-D tomosynthesis with 2-D reconstructions in the CC and MLO projection of each breast was obtained. Computer-aided detection system also utilized. The overall appearance of the breasts is unchanged. No new mass, asymmetry, calcifications, or skin findings of concern have become apparent. Chronic clustered calcifications central right breast unchanged for years Procedure Note Demond Lomas MD - 01/31/2017 COMPARISON: 12/08/2007 through 01/25/2016. Bilateral 3-D tomosynthesis with 2-D reconstructions in the CC and MLOprojection of each breast was obtained. Computer-aided detection systemalso utilized. The overall appearance of the breasts is unchanged. No new mass,asymmetry, calcifications, or skin findings of concern have becomeapparent. Chronic clustered calcifications central right breast unchanged foryears IMPRESSION: Stable appearance of the breasts. No radiographic evidence of malignancy.In the absence of a suspicious palpable abnormality, annual screeningmammography is recommended. BI-RADS CATEGORY: 2 - Benign finding. DENSITY: There are scattered fibroglandular densities. POS CDHMAMA Allyson Lawson MD IMG MG EXAMS Fin al Result documented in this encounter Visit Diagnoses Diagnosis Visit for screening mammogram Visit for screening mammogram documented in this encounter Additional Health Concerns Infection Onset Date Last Indicated Resolved Time CoV-Risk 04/19/2024 04/19/2024 04/30/2024 1:23 AM EST Influenza A 04/19/2024 04/19/2024 04/26/2024 1:23 AM EST documented as of this encounter Care Teams Entry Level Administrative Assistant Relationship Specialty Start Date End Date Sage [place] MD [address] [place], [place] [address] [place] [address] [email or web address] PCP - General 12/23/16 12/25/20 Kelly May FNP [address] [facility] 7 [place] [address] [email or web address] PCP - General Family Medicine 12/26/20 06/27/21 Patria Huerta MD [address] [place] [address] 7 [place] [address] [email or web address] PCP - General Family Medicine 06/28/21 Jose Eduardo Arteaga MD [address] [place] [address], [address] [place] [address] [email or web address] Historical LMR Provider 12/29/16 03/17/21 Sage [place] MD [address] [place], [place] [address] [place] [phone] [email or web address] Historical LMR Provider 12/29/16 06/27/21 Allyson Lawson MD [address] [place] [address] Historical LMR Provider 12/29/16 Michelle [place] NP [address] [place] [address] Historical LMR Provider 12/29/16 2 Demond Keene DO [address] [place] [address] 7 [place] [address] [email or web address] Historical LMR Provider 12/29/16 06/27/21 Temo [place] MD [address] [place] [address] 7 [place] [phone] [email or web address] Historical LMR Provider 12/29/16 06/27/21 Lynn Mabry NP [address] [place] [address] Historical LMR Provider 12/29/16 2 Brittany Rdz MD [address] [place] [address] 7 [place] [address] [email or web address] Historical LMR Provider 12/29/16 03/17/21 Roland Gaspar MD [address] [place] [address] 7 [place] [phone] Historical LMR Provider 12/29/16 2 Patria Huerta MD [address] [place] [address] 7 [place] [address] [email or web address] Historical LMR Provider 12/29/16 2 Temo [place] MD [address] [place] [address] 7 [place] [phone] [email or web address] Insurance Assigned Provider 08/13/20 09/16/20 Demond Keene DO [address] [place] [address] 7 [place] [address] [email or web address] Insurance Assigned Provider 09/16/20 06/27/21 Demond Keene DO [address] [place] [address] 7 [place] [address] [email or web address] Insurance Assigned Provider 09/16/20 09/15/21 Patria Huerta MD [address] [place] [address] 7 [place] [address] [email or web address] Insurance Assigned Provider 06/14/23 documented as of this encounter Additional Source Comments The information contained in this document represents components of the legal health record. It is not the complete legal health record.[facility]
== END 2024-11-15 14:09 | disposition home or self-care (01) ==
LOC: HO.HMGAL 14:06
PROVIDERS: PCP Family Medicine; Visit Provider Registered Nurse Emergency
DX: J30.89 Other allergic rhinitis (principal)
CPT/HCPCS: 95117; 95165

== ENCOUNTER 2025-02-21 14:50 | Outpatient (AMB) | payer OTHER, SELFPAY ==
--- OUTSIDE RECORDS SUMMARY | 2023-10-30 03:30 | XMS_ITS ---
Author Organization [facility] Address [address] [facility] [place] [place] [address] Care Team Providers Care Frit Maker Name Role Phone Sage Durham MD Primary Care Provider Unavail able Ze Bill Unavailable [phone] Problems No Known Problems Encounters Encounter Location Date Provider Diagnosis [facility] [address] [facility] [place] [address] 10/30/2023 Ze Bill Plan Of Treatment No Information Progress Notes * Miracle SHANKSDOB: (65 yo F)Acc No.[id number]:10/30/2023 Progress Notes Patient: Elmer LAROSE Miracle Palm Provider: Theresa Ahuja DPM :1960 A ge:63 Y S ex:Female Date:10/30/2023 Address:[address], [place] Pcp:Sage Durham MD Subjective: * Chief Complaints: * * Medical History: Objective: * Vitals: Assessment: Plan: * Treatment: * Images: * The named appointment provid er may or may not be the originator of this progress note, and it is not deemed complete until electronically signed by the appointment provider. Sign off status: Pending * Provider: Theresa Ahuja DPM Date: 0 10/30/2023 Generated for Micheli traci/Tanya/eTransmitting on: 1 04/24/2024 09:17 PM EST
--- OUTSIDE RECORDS SUMMARY | 2025-02-21 21:17 | XMS_ITS | Encounter Summary ---
Author Organization [facility] Address [email or web address] [place] [address] Phone Care Team Providers Care Track Mechanic Name Role Phone Allyson Lawson MD Unavailable [phone] Patria Huerta MD Primary Care Provider Patria Huerta MD Unavailable [phone] Encounter Details Date Type Department Care Team (Late st Contact Info) Description 05/01/2023 Procedure Pass [facility], Ct Scan - [facility] 30 [place] [address] Social History Tobacco Use Types Packs/Day Years [...] high school, GED, job training, learning the Nepali language, technical skills, or developing parenting skills)? [...] 05/01/2023 11:54 AM Jeannette Desai, RN * [place] Suicide Severity Rating Scale (Screener/Recent Self-Report) Question [...] documented as of this encounter Care Teams Track Mechanic Relationship Specialty Start Date End Date Patria Huerta MD [address] [place] [address] 7 [place] [address] [email or web address] PCP - General Family Medicine 06/28/21 Allyson Lawson MD [address] [place] [address] Historical LMR Provider 12/29/16 Patria Huerta MD [address] [place] [address] 7 [place] [address] [email or web address] Insurance Assigned Provider 06/14/23 documented as of this encounter Additional Source Comments The information contained in this document represents components of the legal health record. It is not the complete legal health record.[facility]
--- OUTSIDE RECORDS SUMMARY | 2025-02-21 21:17 | XMS_ITS | Encounter Summary ---
Author Organization [facility] Address [address] [place] [address] Phone Care Team Providers Care Mill House Supervisor Name Role Phone Jose Eduardo Arteaga MD Unavailable Sage [place] MD Unavailable Allyson Lawson MD Unavailable [phone] Sage [place] MD Primary Care Provider [phone] Michelle Hammond NP Unavailable Demond Keene DO Unavailable Temo [place] MD Unavailable Lynn Mabry OCULARIST Unavailable Brittany Rdz MD Unavailable Roland Gaspar MD Unavailable Patria Huerta MD Unavailable [phone] Temo [place] MD Unavailable Demond Keene DO Unavailable Kelly May Primary Care Provider Patria Huerta MD Primary Care Provider [phone] SahDemond vasquez DO Unavailable Patria Huerta MD Unavailable [phone] Encounter Details Date Type Department Care Team (Late st Contact Info) Description 03/15/2020 Procedure Pass [address] [place] [address] Social History Tobacco Use Types Packs/Day Years [...] documented as of this encounter Care Teams Mill House Supervisor Relationship Specialty Start Date End Date Sage [place] MD [address] [facility] [address] [place] [address] [email or web address] PCP - General 12/23/16 12/25/20 Kelly May FNP [address] [facility], [address] [place] [address] PCP - General Family Medicine 12/26/20 06/27/21 Patria Huerta MD [address] [facility], [address] [place] [address] PCP - General Family Medicine 06/28/21 Jose Eduardo Arteaga MD [address] [facility] 102 [place] [address] [email or web address] Historical LMR Provider 12/29/16 03/17/21 Sage [place] MD [address] [place], [place] [address] [place] [phone] [email or web address] Historical LMR Provider 12/29/16 06/27/21 Allyson Lawson MD [address] [place] [address] Historical LMR Provider 12/29/16 Michelle [place] NP [address] [place] [address] Historical LMR Provider 12/29/16 2 Demond Keene DO [address] [place] [address] 7 [place] [address] [email or web address] Historical LMR Provider 12/29/16 06/27/21 Temo [place] MD [address] [place] [phone] [email or web address] Historical LMR Provider 12/29/16 06/27/21 Lynn Mabry NP [address] [place] [address] Historical LMR Provider 12/29/16 2 Brittany Rdz MD [address] [place] [address] 7 [place] [address] [email or web address] Historical LMR Provider 12/29/16 03/17/21 Roland Gaspar MD [address] [place] [address] 7 [place] [phone] Historical LMR Provider 12/29/16 2 Patria Huerat MD [address] [place] [address] 7 [place] [address] [email or web address] Historical LMR Provider 12/29/16 2 Temo [place] MD [address] [place] [address] [place] [phone] [email or web address] Insurance Assigned Provider 08/13/20 09/16/20 Demond Keene DO [address] [place] [address] 7 [place] [address] [email or web address] Insurance Assigned Provider 09/16/20 06/27/21 Demond Keene DO [address] [place] [address] 7 [place] [address] [email or web address] Insurance Assigned Provider 09/16/20 09/15/21 Patria Huerta MD [address] [place] [address] 7 [place] [address] [email or web address] Insurance Assigned Provider 06/14/23 documented as of this encounter Additional Source Comments The information contained in this document represents components of the legal health record. It is not the complete legal health record.[facility]
--- OUTSIDE RECORDS SUMMARY | 2025-02-21 21:17 | XMS_ITS | Encounter Summary ---
Author Organization [facility] Address [address] [facility] [address] [place] [address] Phone Care Team Providers Care Sergeant Of Officers Name Role Phone Allyson Lawson MD Unavailable [phone] Patria Huerta MD Primary Care Provider [phone] Patria Huerta MD Unavailable [phone] Encounter Details Date Type Department Care Team (Latest Contact Info) Description 04/11/2023 Transcribe Orders Virtual Department 30 [place] [address] Patria Huerta MD [address] [place] [address], [address] [place], [place] [phone] [email or web address] Breast screening (Primary Dx) Social History [...] high school, GED, job training, learning the Kyrgyz language, technical skills, or developing parenting skills)? [...] documented as of this encounter Care Teams Sergeant Of Officers Relationship Specialty Start Date End Date Patria Huerta MD [address] [place] [address], [facility] 7 [place] [address] [email or web address] PCP - General Family Medicine 06/28/21 Allyson Lawson MD [address] [place] [address] Historical LMR Provider 12/29/16 Patria Huerta MD [address] [place] [address] 7 [place] [address] [email or web address] Insurance Assigned Provider 06/14/23 documented as of this encounter Additional Source Comments The information contained in this document represents components of the legal health record. It is not the complete legal health record.[facility]
--- OUTSIDE RECORDS SUMMARY | 2025-02-21 21:17 | XMS_ITS | Encounter Summary ---
Author Organization [facility] Address [address] [place] [address] Phone Care Team Providers Care Mushroom Picker Name Role Phone Allyson Lawson MD Unavailable [phone] Ptaria Huerta MD Primary Care Provider Patria Huerta MD Unavailable [phone] Encounter Details Date Type Department Care Team (Late st Contact Info) Description 04/11/2023 Procedure Pass [address] [place] [address] Social History Tobacco Use Types Packs/Day Years [...] high school, GED, job training, learning the Swiss language, technical skills, or developing parenting skills)? [...] documented as of this encounter Care Teams Mushroom Picker Relationship Specialty Start Date End Date Patria Huerta MD [address] [place] [address] 7 [place], [place] [phone] [email or web address] PCP - General Family Medicine 06/28/21 Allyson Lawson MD [address] [place] [address] Historical LMR Provider 12/29/16 Patria Huerta MD [address] [place] [address] 7 [place] [address] [email or web address] Insurance Assigned Provider 06/14/23 documented as of this encounter Additional Source Comments The information contained in this document represents components of the legal health record. It is not the complete legal health record.[facility]
--- OUTSIDE RECORDS SUMMARY | 2025-02-21 21:17 | XMS_ITS | Patient Health Record ---
Author Organization [facility] [place] Address [address] [facility] [place] [address] Care Team Providers Care Computer Lab Para Professional Name Role Phone Sage [place] MD Primary Care Provider Unavail able Ze Bill Unavailable [phone] Allergies Allergen (clinical drug ingredient) Drug/Non Drug [...] Insured Coverage Start Date Coverage End Date [place] [facility] [address] [place] [address] [id number] Swapnil Monterroso Spouse - patient is the spouse of the insured Medical (General) History Medical History History ICD Code Chicken pox chronic sinusitis Thyroid disorder Joint implants/screws
--- OUTSIDE RECORDS SUMMARY | 2025-02-21 21:18 | XMS_ITS | Encounter Summary ---
Author Organization [facility] Address [address] [place] [address] Phone Care Team Providers Care Filter Press Tender Head Name Role Phone Jose Eduardo Arteaga MD Unavailable Sage [place] MD Unavailable [phone] Allyson Lawson MD Unavailable [phone] Sage [place] MD Primary Care Provider [phone] Michelle [place] NP Unavailable Demond Keene DO Unavailable Temo [place] MD Unavailable [phone] Lynn Mabry TRUST CLERK Unavailable Brittany Rdz MD Unavailable Roland Gaspar MD Unavailable Patria Huerta MD Unavailable [phone] Temo [place] MD Unavailable [phone] Demond Keene DO Unavailable Kelly May Primary Care Provider Patria Huerta MD Primary Care Provider [phone] SahDemond vasquez DO Unavailable Patria Huerta MD Unavailable Encounter Details Date Type Department Care Team (Late st Contact Info) Description 01/16/2017 Ancillary Orders [facility] 30 [place] [address] Allyson [place] MD 4 [place] [address] Visit for screening mammogram Social History Tobacco [...] documented as of this encounter Care Teams Filter Press Tender Head Relationship Specialty Start Date End Date Sage [place] MD [address] [place], [place] [address] [place] [address] [email or web address] PCP - General 12/23/16 12/25/20 Kelly May FNP [facility] 7 [place] [address] PCP - General Family Medicine 12/26/20 06/27/21 Patria Huerta MD [address] [place] [address] 7 [place] [address] PCP - General Family Medicine 06/28/21 Jose Eduardo Arteaga MD [address] [place] [address], [address] [place] [address] [email or web address] Historical LMR Provider 12/29/16 03/17/21 Sage [place] MD [address] [place], [place] [address] [place] [phone] [email or web address] Historical LMR Provider 12/29/16 06/27/21 Allyson Lawson MD [address] [place] [address] Historical LMR Provider 12/29/16 Michelle [place] NP [address] [place] [address] Historical LMR Provider 12/29/16 2 Demond Keene DO [address] [place] [address] 7 [place] [address] [email or web address] Historical LMR Provider 12/29/16 06/27/21 Temo [place] MD [address] [place] [address] 7 [place] [phone] [email or web address] Historical LMR Provider 12/29/16 06/27/21 Lynn Mabry NP [address] [place] [address] Historical LMR Provider 12/29/16 2 Brittany Rdz MD [address] [place] [address] 7 [place] [address] [email or web address] Historical LMR Provider 12/29/16 03/17/21 Roland Gaspar MD [address] [place] [address] 7 [place] [phone] Historical LMR Provider 12/29/16 2 Patria Huerta MD [address] [place] [address] 7 [place] [address] [email or web address] Historical LMR Provider 12/29/16 2 Temo [place] MD [address] [place] [address] 7 [place] [phone] [email or web address] Insurance Assigned Provider 08/13/20 09/16/20 Demond Keene DO [address] [place] [address] 7 [place] [address] [email or web address] Insurance Assigned Provider 09/16/20 06/27/21 Demond Keene DO [address] [place] [address] 7 [place] [address] [email or web address] Insurance Assigned Provider 09/16/20 09/15/21 Patria Huerta MD [address] [place] [address] 7 [place] [address] [email or web address] Insurance Assigned Provider 06/14/23 documented as of this encounter Additional Source Comments The information contained in this document represents components of the legal health record. It is not the complete legal health record.[facility]
--- OUTSIDE RECORDS SUMMARY | 2025-02-21 21:18 | XMS_ITS | Clinical Summary ---
Author Organization [facility] Address [address] [employer] [address] Phone Care Team Providers Care Take Out Waiter Name Role Phone Allyson Lawson MD Unavailable [phone] Patria Huerta MD Primary Care Provider Patria Huerta MD Unavailable [phone] Allergies Active Allergy Reactions Criticality Noted Date Comments Amoxicillin Rash Low 05/02/2016 Sulfa (Sulfonamide Antibiotics) Rash Low 02/07 Medications acetaminophen (TYLENOL) 325 mg tablet Take 2 tablets (650 mg total) by mouth every 4 (four) hours as needed for mild pain. 0 018 Active PREVIDENT 5000 SENSITIVE 1.1-5 % Pste 2 (two) times a day. 023 Active estradioL (VIVELLE-DOT) 0.025 mg/[address] 1 patch onto the skin 2 (two) times a week. 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 90 capsule 3 025 Active LORazepam (ATIVAN) 0.5 MG tabletIndications:Anxie ty state Take 1 tablet (0.5 mg total) by mouth nightly at bedtime as needed for anxiety. 30 tablet 025 Active rosuvastatin (CRESTOR) 10 MG tabletIndications:Pure hypercholesterolemia TAKE ONE TABLET BY MOUTH EVERY DAY 90 tablet 3 025 Active topiramate (TOPAMAX) 25 MG tabletIndications:Class 1 obesity due to excess calories without serious comorbidity with body mass index (BMI) of 32.0 to 32.9 in adult Take 25 mg nightly for 7 days, then go to 50 mg nightly. 90 tablet 025 Active levothyroxine (SYNTHROID, LEVOTHROID) 88 MCG tabletIndications:Hypot hyroidism, unspecified type Take 1 tablet (88 mcg total) by mouth daily. 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 Getting more hot flashes on /2 0.0375 patch. She has had mirena for [...] she is is using oral progesterone with AUDIO VISUAL COLLECTIONS COORDINATOR now Assessment & Plan (04/14/2023 5:58 PM [...] intrauterine device (IUD) 03/24/2017 03/15/2020 Overview (12/04/2017): Miralin 2016 Assessment & Plan (12/03/2017 4:55 PM [...] D&C as noted above. Sinusitis, chronic 02/17/2017 5 Postmenopausal bleeding 02/17/201703/10 Encounters Date Type Department Care Team Description 01/22/2025 Refill [facility] [address] [place] [address] Patria Huerta MD Medication Refill from Last 3 Months Immunizations Immunization Administration Dates Next Due [id number] FORMULATION 04/19/2009 Hepatitis A, Adult 03/24/2013,11/04/2012 INFLUENZA, [...] high school, GED, job training, learning the [place] language, technical skills, or developing parenting skills)? [...] have reliable internet access at home? Ye christopher 06/13/2024 Do you have a device (e.g., [...] 12/26/2021, Additional history exists COVID-19 VACCINE ( - 2024- season) 2024 OSTEOPOROSIS SCREENING INITIAL (ONE-TIME) 02/19/2025 DEPRESSION SCREENING 06/13/2025 06/13/2024 COLONOSCOPY 07/04/2025 07/05/2015 COLORECTAL CANCER SCREENING 07/04/2025 MAMMOGRAM 11/12/2025 11/13/2023, 05/2021, 03/17/2019, Additional history exists TSH LEVEL 02/18/2026 02/18/2025, 12/08, 05/01/2023, Additional history exists PAP SMEAR 03/19/2026 03/19/2021, [...] this topic Medical Devices Implanted Type Area Business Process Associate Device Identifier Shelf Expiration Date Model / Serial / Lot Contraceptive Iud Mirena - Must Order A Minimum Of 50ea - [id number] Implanted:Qty: 1 on 03/07/2017 by Allyson Lawson MD at [facility] N/A: Uterus [employer] 09/07/2019 [id number] / / [id number] Procedures Procedure Name Priority Date/Time Associated Diagnosis Comments TSH WITH REFLEX Routine 02/18/2025 12:49 PM EST Acquired hypothyroidism LFTS (HEPATIC PANEL) Routine 02/18/2025 12:49 PM EST Pure hypercholesterolemia Class 1 obesity due to excess calories without serious comorbidity with body mass index (BMI) of 32.0 to 32.9 in adult CBC Routine 02/18/2025 12:49 PM EST Pure hypercholesterolemia Class 1 obesity due to excess calories without serious comorbidity with body mass index (BMI) of 32.0 to 32.9 in adult Pre-diabetes LIPID PANEL Routine 06/17/2024 11:48 AM EDT Pure hypercholesterolemia BI MAMMOGRAM SCREENING WITH TOMOSYNTHESIS WITH CAD (BILATERAL) Routine 11/13/2023 10:29 AM EDT Breast screening PAP TEST Routine 03/19/2021 12:00 AM EST HEPATITIS C ANTIBODY, QUALITATIVE Routine 03/08/2021 10:53 AM EST Need for hepatitis C screening test HM COLONOSCOPY FOR RESULT ENTRY ONLY Routine 07/05/2015 from Last 3 Months or Most Recently Relevant to Health Maintenance Results * Thyroid Stimulating Hormone (TSH), with Reflex (02/18/2025 12:49 PM EST) TSH 2.27 0.40 - 5.00 uIU/mL 02/18/2025 6:37 PM EST [facility] Blood (Blood) Venipuncture / Unknown 02/18/2025 12:49 PM EST 02/18/2025 12:49 PM EST us Anne Arce LABELING STRATEGIST LAB BLOOD BKR ORDERA BLES Final Result [facility] [address] [place] [address] * Hepatic Panel (LFTs) (02/18/2025 12:49 PM EST) AST 25 <33 U/L 02/18/2025 6:37 PM [facility] ALT 21 <34 U/L 02/18/2025 6:37 PM [facility] Alkaline Phosphatase 69 40 - 130 U/L 02/18/2025 6:37 PM [facility] Bilirubin, Total 0.4 0.0 - 1.2 mg/dL 02/18/2025 6:37 PM [facility] Bilirubin, Direct 0.2 0.0 - 0.3 mg/dL 02/18/2025 6:37 PM [facility] Total Protein 7.2 6.4 - 8.3 g/dL 02/18/2025 6:37 PM [facility] Albumin 4.4 3.5 - 5.2 g/dL 02/18/2025 6:37 PM [facility] Globulin 2.8 1.9 - 4.1 g/dL 02/18/2025 6:37 PM [facility] Blood (Blood) Venipuncture / Unknown 02/18/2025 12:49 PM EST 02/18/2025 12:49 PM EST us Anne Arce LABELING STRATEGIST LAB BLOOD BKR ORDERA BLES Final Result [facility] [address] [place] [address] * CBC (02/18/2025 12:49 PM EST) WBC 6.05 4.00 - 11.00 K/uL 02/18/2025 4:00 PM [facility] RBC 4.32 4.00 - 5.20 M/uL 02/18/2025 4:00 PM [facility] Hemoglobin 13.1 12.0 - 16.0 g/dL 02/18/2025 4:00 PM [facility] Hematocrit 40.7 36.0 - 46.0 % 02/18/2025 4:00 PM [facility] MCV 94.2 80.0 - 100.0 fL 02/18/2025 4:00 PM [facility] MCH 30.3 27.0 - 31.0 pg 02/18/2025 4:00 PM [facility] MCHC 32.2 32.0 - 36.0 g/dL 02/18/2025 4:00 PM [facility] PLT 332 150 - 450 K/uL 02/18/2025 4:00 PM [facility] MPV 10.8 8.4 - 12.0 fL 02/18/2025 4:00 PM [facility] RDW-CV 13.0 11.5 - 14.5 % 02/18/2025 4:00 PM [facility] Absolute NRBC 0.00 <=0.00 K cells/uL 02/18/2025 4:00 PM [facility] NRBC 0.0 <=0.0 /100 WBCs 02/18/2025 4:00 PM [facility] Blood (Blood) Venipuncture / Unknown 02/18/2025 12:49 PM EST 02/18/2025 12:49 PM EST us Anne Arce LABELING STRATEGIST LAB BLOOD BKR ORDERA BLES Final Result Performing Organization Address City/State/[facility] Co de Phone Number [facility] [address] [place] [address] * (ABNORMAL) Lipid panel (06/17/2024 11:48 AM EDT) HDL 73 mg/dL [facility] Comment: Interpretation <40 mg/dL: Low HDL cholesterol (major risk factor for CHD) Greater than or equal to 60 mg/dL: High HDL cholesterol ( negative risk factor for CHD) HDL - cholesterol is affected by a number of factors, e.g. smoking, excerise, hormones, sex and age. CHOLESTEROL 161 0 - 240 mg/dL [facility] TRIGLYCERIDES 70 30 - 160 mg/dL [facility] LDL 74 50 - 129 mg/dL [facility] Comment: LDL levels in terms of risk for coronary heart disease: <100 mg/dL: Optimal 100-129 mg/dL: Near or above optimal 130-159 mg/dL: Borderline high 160-189 mg/dL: High >190 mg/dL: Very High CARDIAC RISK RATIO 2.2(L) 3.3 - 4.4 C [facility] Blood 06/17/2024 11:4 8 AM EDT 06/17/2024 11:51 AM EDT us Patria Huerta MD LAB BLOOD BKR ORDERABLES Fin al Result [address] [address] * BI MAMMOGRAM SCREENING WITH TOMOSYNTHESIS WITH [...] SEE NARRATIVE - 03/22/2021 3:07 PM EST [address] [address] Waste Minimization Technician: Tata Mckinney MD AUDIO VISUAL COLLECTIONS COORDINATOR Cytology Report FINAL DIAGNOSIS A. PAP SMEAR [...] 52, 56, 58, 59, 66, 68) by [employer] HR-HPV analysis. Clinical correlation is advised. This HPV test was performed at [facility], [address] [place] [address]. This test has been FDA approved for [facility] cervical cytology specimens. The accuracy and precision of this test for all other specimen sources has been verified in the Cytopathology Laboratory of the [facility] and has not been cleared or [...] : 1960 (Age: 61) Sex: F Institution: [facility] Location: [facility] Date of Collection: 03/19/2021 Date of Reported: 03/22/2021 15:07 Results to: Judy Ford MD us Judy Ford MD CYTOLOGY ORDERABLES Final Res ult SEE NARRATIVE * Hepatitis C antibody, qualitative (03/08/2021 10:53 AM EST) HCV NON-REACTIV E NON-REACTI VE [facility] Blood 03/08/2021 10:5 3 AM EST 03/08/2021 10:58 AM EST us Kelly Lancaster Zurba SAMPLE [facility]ER LAB BLOOD BKR ORDERABLES Arlyn l Result Performing Organization Address City/[facility]/ZIP Co de Phone Number [address] [address] * COLONOSCOPY FOR RESULT ENTRY ONLY (07/05/2015) Pathologist [facility] Colonoscopy 10 yr Historical Provider HEALTH MAINTENANCE Final Result from Last 3 Months or Most Recently Relevant to Health Maintenance Insurance CIGNA PPO CIGNA PPO CIGNA PPO CIGNA PPO CIGNA PPO [id number] PPO [id number] Advance Directives For more information, please contact: [phone] (9AM - 5PM [place], Friday-Friday) Documents on File Type Date Recorded Patient Director Of Application Development Expl anation Healthcare Proxy 03/11/2017 1:02 PM proxy * Full Code (Presumed) (Latest Code Status on File) Date Activated Date Inactivated Comments 03/07/2017 7:04 AM 03/07/2017 11:33 AM Care Teams Take Out Waiter Relationship Specialty Start Date End Date Patria Huerta MD [address] [place] [address] [email or web address] PCP - General Family Medicine 06/28/21 Allyson Lawson MD [address] [place] [address] Historical LMR Provider 12/29/16 Patria Huerta MD [address] [place] [address] [email or web address] Insurance Assigned Provider 06/14/23 Additional Source Comments The information contained in this document represents components of the legal health record. It is not the complete legal health record.[facility]
--- OUTSIDE RECORDS SUMMARY | 2025-02-21 21:18 | XMS_ITS | Encounter Summary ---
Author Organization [facility] Address [address] [place] [address] Phone Care Team Providers Care Sales Engineering Manager Name Role Phone Jose Eduardo Arteaga MD Unavailable Sage Durham MD Unavailable Allyson Lawson MD Unavailable [phone] Sage Durham MD Primary Care Provider [phone] Michelle Hammond NP Unavailable Demond Keene DO Unavailable Temo Durham MD Unavailable Lynn Mabry SHEEP FARM MANAGER Unavailable Brittany Rdz MD Unavailable Roland Gaspar MD Unavailable [phone] Patria Huerta MD Unavailable Temo Durham MD Unavailable Demond Keene DO Unavailable Kelly May Primary Care Provider [phone] Patria Huerta MD Primary Care Provider [phone] SahDemond vasquez DO Unavailable Patria Huerta MD Unavailable Encounter Details Date Type Department Care Team (Late st Contact Info) Description 03/07/2017 Procedure Pass OR Admitting Dept - Virtual Department [address] [place] [address] Social History Tobacco Use Types Packs/Day Years [...] documented as of this encounter Care Teams Sales Engineering Manager Relationship Specialty Start Date End Date Sage Durham MD [address] [place], [place] [address] [place] [address] [email or web address] PCP - General 12/23/16 12/25/20 Kelly May FNP [address] [place] [address] [address] [place] [address] PCP - General Family Medicine 12/26/20 06/27/21 Patria Huerta MD [address] [place] [address] [address] [place] [address] PCP - General Family Medicine 06/28/21 Jose Eduardo Arteaga MD [address] [place] [address], [address] [address] [email or web address] Historical LMR Provider 12/29/16 03/17/21 Sage Durham MD [address] [place] [address] [address] [place] [phone] [email or web address] Historical LMR Provider 12/29/16 06/27/21 Allyson Lawson MD [address] [place] [address] Historical LMR Provider 12/29/16 Michelle Hammond NP [address] [place] [address] Historical LMR Provider 12/29/16 2 Demond Keene DO [address] [place] [address] 7 [place] [address] [email or web address] Historical LMR Provider 12/29/16 06/27/21 Temo Durham MD [address] [place] [address] [address] [place] [phone] [email or web address] Historical LMR Provider 12/29/16 06/27/21 Lynn Mabry NP [address] [place] [address] Historical LMR Provider 12/29/16 2 Brittany Rdz MD [address] [place] [address] [address] [place] [address] [email or web address] Historical LMR Provider 12/29/16 03/17/21 Roland Gaspar MD [address] [place] [address] [address] [place] [phone] Historical LMR Provider 12/29/16 2 Patria Huerta MD [address] [place] [address] [address] [place] [address] [email or web address] Historical LMR Provider 12/29/16 2 Temo Durham MD [address] [place] [address] [place] [phone] [email or web address] Insurance Assigned Provider 08/13/20 09/16/20 Demond Keene DO [address] [place] [address] [address] [place] [address] [email or web address] Insurance Assigned Provider 09/16/20 06/27/21 Demond Keene DO [address] [place] [address] [address] [place] [address] [email or web address] Insurance Assigned Provider 09/16/20 09/15/21 Patria Huerta MD [address] [place] [address] [address] [place] [address] [email or web address] Insurance Assigned Provider 06/14/23 documented as of this encounter Additional Source Comments The information contained in this document represents components of the legal health record. It is not the complete legal health record.[facility]
== END 2025-02-21 14:55 | disposition home or self-care (01) ==
LOC: HO.HMGAL 14:50
PROVIDERS: PCP Family Medicine; Visit Provider Registered Nurse Emergency
DX: J30.89 Other allergic rhinitis (principal)
CPT/HCPCS: 95117; 95165